=== PATIENT | female | born 1970 | race Caucasian/White ===

== ENCOUNTER 2025-06-06 09:56 | Emergency (ER) | payer MEDICAID, OTHER ==
[~2025-06-06] VITALS: Ht 165.1 cm; Wt 78.0 kg
[2025-06-06 10:02] VITALS: O2SAT 99
[2025-06-06] MEDS: PIPERACILLIN/TAZO 3.375G/50ML 50 ML IV ONE (10:36)
[2025-06-06] MEDS: SODIUM CHLORIDE 0.9% (SEPSIS BOLUS) IV ONE (10:38)
[2025-06-06] MEDS: VANCOMYCIN 1G PREMIX 200 ML IV ONE (11:07)
[2025-06-06 11:10] LABS: CREATININE 0.8 mg/dL (0.6-1.0); UREA NITROGEN BLOOD 9 mg/dL (9-23)
[2025-06-06 11:12] LABS: ASPARTATE AMINOTRANSFERASE 17 IU/L (<34); BILIRUBIN DIRECT 0.2 mg/dL (<=3.0); BILIRUBIN TOTAL 0.7 mg/dL (0.1-1.0); PROTEIN TOTAL 7.1 g/dL (6.0-8.3)
[2025-06-06] MEDS: KETOROLAC 30MG/ML VIAL IV ONE (11:14)
[2025-06-06 11:16] LABS: HEMATOCRIT. 40.2 % (36.0-48.0); HEMOGLOBIN. 13.3 g/dL (12.0-16.0); MEAN PLATELET VOLUME 7.4 fl (7.4-10.4); PLATELET 552 x1000/uL (130-400); RED BLOOD CELL COUNT 4.35 mill/uL (4.2-5.4); RED CELL DISTRIBUTION WIDTH 14.6 % (11.6-14.6)
[2025-06-06 11:22] LABS: CLARITY URINE CLOUDY (CLEAR); COLOR URINE YELLOW (YELLOW); GLUCOSE URINE NEGATIVE (NEGATIVE); KETONES URINE NEGATIVE (NEGATIVE); LEUKOCYTE ESTERASE URINE 1+ (NEGATIVE); NITRITE URINE NEGATIVE (NEGATIVE); OCCULT BLOOD URINE 2+ (NEGATIVE); PH URINE 6.0 (4.5-8.0); PROTEIN URINE 1+ (NEGATIVE); SPECIFIC GRAVITY URINE 1.013 (1.005-1.030); UROBILINOGEN URINE 1.0 E.U./dL (0.2-1.0)
[2025-06-06 12:16] LABS: SQUAMOUS EPITHELIAL CELL URINE 2+ /lpf (RARE/1+)
[2025-06-06 12:17] LABS: BACTERIA URINE 2+; HYALINE CASTS URINE 0-5 /lpf
[2025-06-06 12:45] LABS: BAND% 10.0 % (1.0-6.0); LYMPHOCYTES % MANUAL 3.0 % (20.0-60.0); MONOCYTES % MANUAL 7.0 % (2.0-8.0); NEUTROPHILS % MANUAL 80.0 % (45.0-75.0)
[2025-06-06 12:46] LABS: PLATELET ESTIMATE INCREAS
[2025-06-06 12:49] LABS: INR 1.1
[2025-06-06] MEDS ORDERED: KETOROLAC 15MG/ML VIAL IV PRN (13:00)
[2025-06-06] MEDS ORDERED: ONDANSETRON HCL 4MG/2ML INJ IV PRN (13:00)
[2025-06-06 14:00] VITALS: BP 135/79; PULSE 98; RESP 16; TEMP 37.1; O2SAT 98
[2025-06-06] MEDS ORDERED: PIPERACILLIN/TAZO 3.375G/50ML 50 ML IV SCH (18:00)
== END 2025-06-06 14:10 | disposition short-term general hospital (02) ==
LOC: ER 09:56 → CANBEDREQ 12:25 → ER 14:10
DX: A41.9 Sepsis, unspecified organism (principal); R65.20 Severe sepsis without septic shock; S40.862A Insect bite (nonvenomous) of left upper arm, initial encounter; I10 Essential (primary) hypertension; Z88.0 Allergy status to penicillin; Z98.51 Tubal ligation status; X58.XXXA Exposure to other specified factors, initial encounter; Y93.89 Activity, other specified; Y92.89 Other specified places as the place of occurrence of the external cause; Y99.8 Other external cause status
CPT/HCPCS: 99291; 96365; 96367; 96375; 80076; 80048; 81003; 83605; 85025; 85610; 85730; 87040; 87086; 36415; 84145; 71045; 93005; J1885; J2543; J3373; J7030